=== PATIENT | female | born 1970 | race Caucasian/White ===

== ENCOUNTER 2016-09-23 18:13 | Emergency (ER) | payer OTHER ==
[~2016-09-23] VITALS: Ht 157.5 cm; Wt 75.0 kg
[~2016-09-23 18:13] MED LIST: GLC500 PO; INSDGI SC; LACTOSE; LRT5 PO
[2016-09-23 18:24] VITALS: TEMP 37.1; Ht 157.5 cm; Wt 75.0 kg
[2016-09-23] MEDS ORDERED: CETI10TA84 PO (20:22)
[2016-09-23] MEDS ORDERED: ONDA8TAB6 PO (20:22)
[2016-09-23] MEDS ORDERED: GABA-113 PO (20:22)
[2016-09-23] MEDS ORDERED: METF500T5 PO (20:22)
[2016-09-23] MEDS ORDERED: SUCR1TAB29 PO (20:22)
[2016-09-23] MEDS ORDERED: RANI300T2 PO (20:22)
[2016-09-23] MEDS ORDERED: SERT25TA PO (20:22)
[2016-09-23] MEDS ORDERED: CYAN100T PO (20:22)
[2016-09-23] MEDS ORDERED: OMEP40CA41 PO (20:22)
[2016-09-23] MEDS ORDERED: HYDR-5688 PO (20:22)
[2016-09-23] MEDS ORDERED: DICY10CA55 PO (20:22)
[2016-09-23] MEDS ORDERED: GLIP1TAB91 PO (20:22)
[2016-09-23] MEDS ORDERED: LORA-741 PO (20:22)
--- NOTE | 2016-09-23 20:43 | DIAGNOSTIC IMAGING REPORT ---
CHEST 2 VIEWS ROUTINE HISTORY: fall COMPARISON: None. FINDINGS: Extensive cervical spinal fusion hardware. Cholecystectomy. No pleural effusions. No pneumothorax. The heart is normal in size. Right cardiophrenic angle lobular density may represent prominent mediastinal fat or a diaphragmatic hernia. This is likely a chronic finding. IMPRESSION: No acute process. Electronically signed by: Rashard Alonzo M.D. 09/23/2016 8:42 PM Dictated Date/Time: 09/23/2016 8:40 PM
--- NOTE | 2016-09-23 20:45 | DIAGNOSTIC IMAGING REPORT ---
LUMBAR SPINE 5 VIEWS HISTORY: Low back pain. fall COMPARISON: None. FINDINGS: There is no fracture. No subluxation. Disc spaces are preserved. The sacrum appears intact. Suture material within the left side the abdomen. Right upper quadrant surgical clips suggestive of prior cholecystectomy. Mild facet degenerative changes within the lower lumbar spine. IMPRESSION: No fracture or subluxation within the lumbar spine. Electronically signed by: Rashard Alonzo M.D. 09/23/2016 8:44 PM Dictated Date/Time: 09/23/2016 8:42 PM
[2016-09-23 21:18] VITALS: BP 126/67; PULSE 72; O2SAT 94
--- NOTE | 2016-09-23 21:31 | EMERGENCY ROOM VISIT NOTE ---
History Report prepared by Agata: Pepper Yates Under the Supervision of: Dr. Tom Tejeda D.O. First contact with patient: 19:05 Chief Complaint: FALL Stated Complaint: BACK PAIN & ARM NUMBNESS, FALL History of Present Illness The patient is a 45 year old female who presents to the Emergency Room with complaints of a sudden fall that occurred prior to arrival. She currently rates her discomfort as a 7/10 in severity. The patient states that she was getting ice and stepped backwards, knocking down a bread rack and into a crate. She states that she hit her hand has noticed numbness. The patient notes left shoulder pain and back pain. She reports a past surgical history of a neck surgery. Per nursing notes the patient has a history of back problems. Nursing notes report that the patient was given 8 mg of Morphine en-route to the emergency department. Source of History: patient Onset: prior to arrival Position: other (global) Symptom Intensity: 7/10 Quality: other (fall) Timing: other (sudde) Associated Symptoms: + back pain, + numbness (hand) Note: Associated Symptoms: left shoulder pain Review of Systems See HPI for pertinent positives & negatives. A total of 10 systems reviewed and were otherwise negative. Past Medical & Surgical Medical Problems: (1) Back problem Surgical Problems: (1) Hx of neck surgery Family History No pertinent family history stated. Social History Smoking Status: Current Every Day Smoker Marital Status: single Occupation Status: employed Current/Historical Medications Scheduled Cetirizine (Zyrtec), 10 MG PO DAILY Cyanocobalamin (Vitamin B-12), 100 MCG PO DAILY Gabapentin (Neurontin), 150 MG PO TIDM Glipizide Xl (Glucotrol Xl), 5 MG PO QAM Lorazepam (Ativan), 0.5 MG PO PRN Metformin Hcl Er (Glucophage Er), 1,000 MG PO BID Omeprazole (Prilosec), 40 MG PO DAILY Ranitidine (Zantac), 300 MG PO HS Sertraline (Zoloft), 1,000 MG PO DAILY Sucralfate (Carafate), 1 GM PO ACHS Scheduled PRN Dicyclomine Hcl (Bentyl), 10 MG PO QID PRN for abd cramps Hydrocodone/Acetaminophen 5MG/325MG ([place] 5MG/325MG), 1 TABLET PO Q6 PRN for Pain Ondansetron Hcl (Zofran), 8 MG PO Q8 PRN for Nausea Allergies Coded Allergies: Hydromorphone (Verified Allergy, Intermediate, ITCHING, 09/23/16) Metoclopramide (Verified Allergy, Intermediate, ITCHING, 09/23/16) INFO FROM [facility] Penicillins (Unverified Allergy, Mild, 03/15/09) Oxycodone (Verified Allergy, Unknown, ITCH, 09/23/16) INFO FROM [facility] Physical Exam Vital Signs Date Time Temp Pulse Resp B/P (MAP) Pulse Ox O2 Delivery O2 Flow Rate FiO2 09/23/16 21:18 72 20 126/67 94 Room Air 09/23/16 18:24 37.1 88 20 153/63 94 Room Air Physical Exam CONSTITUTIONAL/VITAL SIGNS: Reviewed / noted above. GENERAL: Non-toxic in appearance. INTEGUMENTARY: Warm, dry, and [place]. HEAD: Normocephalic. EYES: without scleral icterus or trauma. ENT/OROPHARYNX: clear and moist. LYMPHADENOPATHY/NECK: Is supple without lymphadenopathy or meningismus. RESPIRATORY: Lungs clear and equal. CARDIOVASCULAR: Regular rate and rhythm. GI/ABDOMEN: Soft and nontender. No organomegaly or pulsatile mass. No rebound or guarding. Normal bowel sounds. EXTREMITIES: Warm and well perfused. BACK: No CVA tenderness. No obvious physical trauma, mild tenderness to palpation of the lumbar region. NEUROLOGICAL: Intact without focal deficits. PSYCHIATRIC: normal affect. MUSCULOSKELETAL: Normally developed with good muscle tone. Medical Decision & Procedures ER Provider Diagnostic Interpretation: Radiology results as stated below per my review and radiologist interpretation: LUMBAR SPINE 5 VIEWS HISTORY: Low back pain. fall COMPARISON: None. FINDINGS: There is no fracture. No subluxation. Disc spaces are preserved. The sacrum appears intact. Suture material within the left side the abdomen. Right upper quadrant surgical clips suggestive of prior cholecystectomy. Mild facet degenerative changes within the lower lumbar spine. IMPRESSION: No fracture or subluxation within the lumbar spine. Electronically signed by: Rashard Alonzo M.D. 09/23/2016 8:44 PM Dictated Date/Time: 09/23/2016 8:42 PM CHEST 2 VIEWS ROUTINE HISTORY: fall COMPARISON: None. FINDINGS: Extensive cervical spinal fusion hardware. Cholecystectomy. No pleural effusions. No pneumothorax. The heart is normal in size. Right cardiophrenic angle lobular density may represent prominent mediastinal fat or a diaphragmatic hernia. This is likely a chronic finding. IMPRESSION: No acute process. Electronically signed by: Rashard Alonzo M.D. 09/23/2016 8:42 PM Dictated Date/Time: 09/23/2016 8:40 PM ED Course 1908: Previous medical records were reviewed. The patient was evaluated in room A4B. A complete history and physical examination was performed. 2132: I reevaluated the patient and she is resting. I discussed the exam findings with her and I discussed the treatment plan. She verbalized complete understanding and agreement. She is ready to go home. Medical Decision Differentials include: Close head injury, intracranial bleed, facial trauma, cervical spine trauma, chest and thoracic trauma, abdominal and intra-abdominal trauma, spine neurologic trauma, and extremity trauma. This is a 45-year-old female who presents to the ED with a chief complaint of a fall. The patient states that she was moving backwards and tripped and fell onto her buttocks. She complains of some low back pain his pain and left shoulder. Her exam was relatively unremarkable for any visible trauma. She has full range of motion of her left arm and shoulder and elbow. There is no obvious bony injury or skin injury. Lumbar region reveals no obvious visible injury but she does have some mild tenderness in that area. The patient was given IV was seen by EMS. X-ray of the lumbar spine did not show any obvious abnormalities. Chest x-ray did not show any abnormalities. The patient was told the results. She is felt to be stable for discharge and outpatient follow- up. Medication Reconcilliation Current Medication List: was personally reviewed by me Blood Pressure Screening Patient's blood pressure: Elevated blood pressure Blood pressure disposition: Elevated BP felt to be situational, Did not require urgent referral Impression Primary Impression: Fall Additional Impression: Contusion of multiple sites Scribe Attestation The scribe's documentation has been prepared under my direction and personally reviewed by me in its entirety. I confirm that the note above accurately reflects all work, treatment, procedures, and medical decision making performed by me. Departure Information Dispostion Home / Self-Care Referrals Lj Liriano D.O. (PCP) Forms HOME CARE DOCUMENTATION FORM, IMPORTANT VISIT INFORMATION Patient Instructions My [facility] Additional Instructions Follow-up with your doctor for further care and evaluation in 1-2 days. Return to the emergency department for worsening or new symptoms or any concerns. You have been examined and treated today on an emergency basis only. This is not a substitute for, or an effort to provide, complete comprehensive medical care. It is impossible to recognize and treat all injuries or illnesses in a single emergency department visit. It is therefore important that you follow up closely with your doctor. Call as soon as possible for an appointment. Take [id number] medication for pain. Problem Qualifiers
== END 2016-09-23 21:44 | disposition home or self-care (01) ==
LOC: EDBD 18:13 → C.EDA 18:14
DX: T14.8 Other injury of unspecified body region (principal); W19.XXXA Unspecified fall, initial encounter; F17.200 Nicotine dependence, unspecified, uncomplicated